=== PATIENT | female | born 1950 | race Caucasian/White ===

== ENCOUNTER 2017-01-26 13:00 | Inpatient (IN) | payer OTHER ==
[~2017-01-26] VITALS: Ht 160 cm; Wt 75.7 kg
[~2017-01-26 13:00] MED LIST: [UNRECOGNIZED DRUG - REMARK]
[2017-01-26 13:07] VITALS: BP 133/73
[2017-01-26 13:38] LABS: BASOPHILS # (AUTO) 0.2 K/uL (0.00-0.22); BASOPHILS % (AUTO) 2.1 % (0.0-2.0); EOSINOPHILS # (AUTO) 0.5 K/uL (0-0.4); EOSINOPHILS % (AUTO) 5.6 % (0.0-4.0); HEMOGLOBIN 14.2 g/dL (12.0-16.0); LYMPHOCYTES # (AUTO) 1.4 K/uL (2.5-16.5); LYMPHOCYTES % (AUTO) 14.1 % (20.5-51.1); MEAN CORPUSCULAR HEMOGLOBIN 30 pg (27-31); MEAN CORPUSCULAR HGB CONC 32 g/dL (33-37); MEAN CORPUSCULAR VOLUME 94 fL (80-94); MONOCYTES # (AUTO) 0.8 K/uL (0.8-1.0); MONOCYTES % (AUTO) 8.7 % (1.7-9.3); NEUTROPHILS # (AUTO) 6.9 K/uL (1.8-7.7); NEUTROPHILS % (AUTO) 69.5 % (42.2-75.2); PLATELET COUNT (AUTO) 234 K/uL (140-450); RED CELL DISTRIBUTION WIDTH 14.6 % (11.6-13.7); WHITE BLOOD COUNT (AUTO) 9.8 K/uL (4.8-10.8)
--- NOTE | 2017-01-26 13:50 | NUR ---
Patient BIBA to bed 6 at this time
[2017-01-26 13:56] LABS: ANION GAP 15.2 (8-16); CARBON DIOXIDE 27.7 mmol/L (21-32); CREATININE 1.4 mg/dL (0.6-1.3); POTASSIUM 3.9 mmol/L (3.5-5.1)
--- NOTE | 2017-01-26 14:00 | NUR ---
66F BIBA FROM CLINIC IN [place] C/O MID-ABDOMINAL PAIN, SHARP, NON-RADIATING, 10/10 X 5 DAYS; PT C/O NAUSEA, BUT STATES NO VOMTIING/DIARRHEA AT THIS TIME; ABDOMEN SOFT, NON-TENDER, ACTIVE BOWEL SOUNDS X 4 QUADRANTS; PT NOTED WITH PORT-O-CATH TO LEFT UPPER CHEST; HEALED SCAR NOTED TO RT ABDOMEN FROM GALLBLADDER REMOVAL AND HEALED SCAR NOTED TO RT BREAST FROM MASTECTOMY/RT BREAST CANCER; PT AA&OX4, PERRLA, BL LUNG SOUNDS CLEAR, RR EVEN/UNLABORED, SKIN IS WARM/DRY/INTACT; PT PLACED ON MONITOR, RESTING IN BED W/ HOB ELEVATED AND IN LOWEST POSITION; POSITIONED FOR COMFORT; ER MD MADE AWARE OF STATUS. WILL CONTINUE TO MONITOR.
[2017-01-26 14:03] LABS: ALBUMIN 2.8 g/dL (3.4-5.0); TOTAL BILIRUBIN 3.3 mg/dL (0.0-1.0)
[2017-01-26] MEDS ORDERED: MORPHINE SULFATE 4 MG/ML SYR IVP ONE ×2 (14:20→16:05)
--- NOTE | 2017-01-26 14:45 | NUR ---
IV 20G TO LEFT HAND ESTABLISHED INI FIELD removed IV NOT FLUSHABLE, catheter intact and site benign. Applied folded 4x4 gauze and tape to stop bleeding. PT TOLERATED PROCEDURE WELL; PT STATES NO PAIN TO SITE.
[2017-01-26] MEDS ORDERED: ONDANSETRON 4 MG/2 ML VIAL IVP ONE (14:55)
--- NOTE | 2017-01-26 15:45 | NUR ---
PT RETURNED FROM CT VIA [facility]NEY ACCOMPANIED BY [employer]
--- NOTE | 2017-01-26 16:03 | NUR ---
ER MD DR. GEE EVALUATING PT AT BEDSIDE.
--- NOTE | 2017-01-26 16:30 | NUR ---
PT APPEARS TO BE RESTING COMFORTABLY IN BED; VSS; RR EVEN/UNLABORED; WILL CONTINUE TO MONITOR.
[2017-01-26] MEDS ORDERED: LEVOFLOXACIN 500 MG/D5W PREMIX 100 ML IV ONE (16:35)
[2017-01-26] MEDS ORDERED: NACL 0.9% 1,000 ML IV ONE (16:35)
[2017-01-26] MEDS: NACL 0.9% 1,000 ML IV SCH (16:52)
[2017-01-26] MEDS ORDERED: LORazepam 2 MG/ML VIAL IVP PRN (16:55)
[2017-01-26] MEDS ORDERED: ALBUTEROL 0.083% 2.5 MG/3 ML NEBU IH PRN (16:55)
[2017-01-26] MEDS ORDERED: LEVOFLOXACIN 500 MG/D5W PREMIX 100 ML IV SCH (16:55)
--- NOTE | 2017-01-26 17:07 | NUR ---
CALLED TO GIVE REPORT TO MST; MST TO CALL BACK WHEN RN ASSIGNED TO PT VERIFIED.
--- NOTE | 2017-01-26 17:41 | NUR ---
REPORT GIVEN TO HARLEY ANDERSEN.
[2017-01-26 17:49] LABS: AMPHETAMINE, URINE NEG. ng/ml (NEG <=1000); BARBITURATE, URINE NEG. ng/ml (NEG <=200); BENZODIAZEPINE, URINE NEG. ng/mL (NEG <=200); CANNABINOID, URINE NEG. ng/mL (NEG <=50); COCAINE, URINE NEG. ng/mL (NEG <=300); OPIATE, URINE NEG. ng/mL (NEG <=2000); PHENCYCLIDINE SCREEN,URINE NEG. ng/mL (NEG <=25)
--- NOTE | 2017-01-26 18:04 | NUR ---
Patient will be admitted to care of DR. SORIANO. Admited to MED-SURG. Will go to room 122B. Belongings list completed. Report to HARLEY ANDERSEN.
--- NOTE | 2017-01-26 18:05 | NUR ---
RECEIVED PATIENT FROM ER NURSE. PATIENT IS AAOX4 AND SHOWS NO S/S OF DISTRESS ON ROOM AIR. IV NOTED ON THE LEFT HAND WITH IVF'S INFUSING WELL. PATIENT STATES SHE IS IN PAIN FROM THE MOVEMENT OF BEING TRANSPORTED TO THE UNIT. VITAL SIGNS 92/59, HR 101, RESPIRATIONS 17, O2 SAT 96%, TEMPERATURE 98.2 F. PATIENT SKIN IS INTACT. ON MED SURG. PATIENT WAS EDUCATED ON THE POC FOR TODAY. THE BED IS LOWERED WITH CALL LIGHT WITHIN REACH.
--- NOTE | 2017-01-26 19:20 | NUR ---
RECEIVED REPORT FROM HARLEY ANDERSEN AT BEDSIDE. INITIAL ASSESSMENT COMPLETED. PT AAOX4. PT AMBULATORY. PT HAS IV ON LEFT HAND 24G INFUSING FLUIDS WELL. PT HAS A MAGNOLIA CATH. PT HAD RIGHT SIDED MASTECTOMY. ORIENTED PT TO ROOM AND SURROUNDINGS AND USE OF CALL LIGHT. EXPLAINED PLAN OF CARE TO PT AND DAUGHTER AND THEY VERBALIZE UNDERSTANDING. WILL CONTINUE TO MONITOR PT. CALL LIGHT WITHIN REACH.
--- NOTE | 2017-01-26 19:27 | NUR ---
PT REPORT WAS GIVEN AT BEDSIDE TO NIGHT NURSE. PATIENT ENDORSED IN STABLE CONDITION.
--- NOTE | 2017-01-26 20:20 | NUR ---
I PROVIDED PT WITH SCDS AND EXPLAINED THE BENEFITS OF IT. PT WEARING SCDS.
--- NOTE | 2017-01-26 21:27 | NUR ---
PT COMPLAINING OF ABDOMINAL PAIN 01/24. VS STABLE, WILL MEDICATE ORDERED.
[2017-01-26] MEDS: MORPHINE SULFATE 2 MG/ML SYR IVP PRN (21:29)
[2017-01-26] MEDS: ONDANSETRON 4 MG/2 ML VIAL IVP PRN (21:29)
--- NOTE | 2017-01-26 23:59 | NUR ---
PT STABLE, NO SIGNS OF DISTRESS OR DISCOMFORT NOTED. CALL LIGHT WITHIN REACH.
[2017-01-27] VITALS: BP 117/65
--- NOTE | 2017-01-27 00:50 | NUR ---
PT VOIDED USING A BEDPAN. PT STABLE AT THIS TIME. CALL LIGHT WITHIN REACH.
--- NOTE | 2017-01-27 02:20 | NUR ---
PT AWAKE, PT STATED THAT SHE SLEPT WELL BUT SHE IS STILL TIRED. WILL CONTINUE TO MONITOR PT.
[2017-01-27] MEDS: NACL 0.9% 1,000 ML IV SCH (03:47)
--- NOTE | 2017-01-27 04:46 | NUR ---
PT SLEEPING NO SIGNS OF DISTRESS OR DISCOMFORT NOTED. WILL CONTINUE TO MONITOR PT.
--- NOTE | 2017-01-27 06:25 | NUR ---
PT USING BEDPAN. PT TOLERATING IT WELL. WILL CONTINUE TO MONITOR PT.
[2017-01-27 07:10] LABS: BASOPHILS # (AUTO) 0.1 K/uL (0.00-0.22); EOSINOPHILS # (AUTO) 0.6 K/uL (0-0.4); EOSINOPHILS % (AUTO) 7.1 % (0.0-4.0); HEMATOCRIT 35.9 % (36-48); HEMOGLOBIN 12.1 g/dL (12.0-16.0); LYMPHOCYTES # (AUTO) 1.6 K/uL (2.5-16.5); LYMPHOCYTES % (AUTO) 19.8 % (20.5-51.1); MEAN CORPUSCULAR HEMOGLOBIN 31 pg (27-31); MEAN CORPUSCULAR HGB CONC 34 g/dL (33-37); MEAN CORPUSCULAR VOLUME 93 fL (80-94); MONOCYTES # (AUTO) 0.7 K/uL (0.8-1.0); MONOCYTES % (AUTO) 9.2 % (1.7-9.3); NEUTROPHILS # (AUTO) 4.8 K/uL (1.8-7.7); NEUTROPHILS % (AUTO) 62.9 % (42.2-75.2); PLATELET COUNT (AUTO) 194 K/uL (140-450); RED BLOOD CELL COUNT(AUTO) 3.86 MIL/uL (4.20-5.40); RED CELL DISTRIBUTION WIDTH 14.9 % (11.6-13.7); WHITE BLOOD COUNT (AUTO) 7.8 K/uL (4.8-10.8)
--- NOTE | 2017-01-27 07:30 | NUR ---
RECEIVED PATIENT REPORT AT BEDSIDE. PATIENT AWAKE AND ALERT. PATIENT C/O 9/10 ABD PAIN AND NAUSEA. WILL MEDICATE. PATIENT BREATHING ON ROOM AIR. NO SOB NOTED. BED LOWERED WITH CALL LIGHT WITHIN REACH. WILL CONTINUE TO MONITOR
--- NOTE | 2017-01-27 07:38 | NUR ---
ENDORSED PLAN OF CARE TO DAY SHIFT NURSE. PT IN STABLE CONDITION.
[2017-01-27] MEDS: MORPHINE SULFATE 2 MG/ML SYR IVP PRN ×2 (07:50→14:17)
[2017-01-27] MEDS: ONDANSETRON 4 MG/2 ML VIAL IVP PRN ×2 (07:54→15:07)
[2017-01-27 08:00] VITALS: BP 106/59
[2017-01-27 08:05] LABS: ANION GAP 14.6 (8-16); CALCIUM 8.3 mg/dL (8.5-10.1); CARBON DIOXIDE 25.5 mmol/L (21-32); CREATININE 1.3 mg/dL (0.6-1.3); POTASSIUM 4.1 mmol/L (3.5-5.1)
[2017-01-27 08:12] LABS: ALBUMIN 2.3 g/dL (3.4-5.0); TOTAL BILIRUBIN 2.5 mg/dL (0.0-1.0); TOTAL PROTEIN, SERUM 6.6 g/dL (6.4-8.2)
[2017-01-27] MEDS ORDERED: ENOXAPARIN 30 MG/0.3 ML SYR SUBQ SCH (09:00)
--- NOTE | 2017-01-27 09:05 | NUR ---
PATIENT HAS BEEN SCREENED AND CATEGORIZED HIGH NUTRITION RISK. PATIENT WILL BE SEEN WITHIN 1-2 DAYS OF ADMISSION. 01/27/17-01/28/[address]
--- NOTE | 2017-01-27 09:20 | NUR ---
PATIENT SEEN BY DR SORIANO
--- NOTE | 2017-01-27 09:46 | NUR ---
BLOOD SUGAR 44. DR SORIANO NOTIFIED. ORDERS TO GIVE D50 IVP
--- NOTE | 2017-01-27 09:50 | NUR ---
D50 ADMINISTERED IVP. WILL REASSESS
[2017-01-27] MEDS ORDERED: DEXTROSE 50% 50 ML SYR IVP ONE (09:51)
--- NOTE | 2017-01-27 10:31 | NUR ---
BLOOD SUGAR CHECKED 188
--- NOTE | 2017-01-27 10:32 | NUR ---
CM NOTE PER FIRST OFFICER AND FLIGHT INSTRUCTOR PORTILLO, REVIEWS SHOULD ONLY BE SENT TO [facility]. FAXED INITIAL REVIEW TO [facility] [phone]
[2017-01-27] MEDS: DEXT 5% /NACL 0.9% 1,000 ML IV SCH (10:45)
[2017-01-27] MEDS ORDERED: DEXTROSE 50% 50 ML SYR IVP PRN (11:00)
[2017-01-27] MEDS ORDERED: MAGNESIUM HYDROXIDE 2400 MG/30 ML UDC PO PRN (11:10)
[2017-01-27] MEDS ORDERED: BISACODYL 10 MG SUPP RC PRN (11:10)
[2017-01-27] MEDS: BLOOD GLUCOSE MONITORING 1 DEV DEV FS SCH ×3 (11:50→20:30)
--- NOTE | 2017-01-27 12:30 | NUR ---
ASSISTED PATIENT TO THE BEDSIDE COMMODE. PATIENT HAD A BM. STOOL FORMED, BLACK IN COLOR, MODERATED IN AMOUNT. PATIENT GIVEN PERINEAL CARE.
--- NOTE | 2017-01-27 12:39 | NUR ---
01/27/17 RD INITIAL ASSESSMENT COMPLETED PLEASE REFER TO NUTRITION ASSESSMENT UNDER CARE ACTIVITY FOR ESTIMATED NUTRITIONAL NEEDS. 1. WHEN MEDICALLY FEASIBLE, INITIATE PO DIET, TO START ON CLEAR LIQUID DIET AND ADVANCE TOLERATED TO REGULAR, MECHANICAL SOFT DIET. 2. RD TO FOLLOW-UP 2-3 DAYS; HIGH RISK TASHA NELSON RD
--- NOTE | 2017-01-27 14:10 | NUR ---
PATIENT SEEN BY DR MCFARLAND
[2017-01-27 16:00] VITALS: BP 112/57
[2017-01-27] MEDS ORDERED: LEVOFLOXACIN 250 MG/D5 PREMIX 50 ML IV SCH (16:00)
[2017-01-27] MEDS ORDERED: MAGNESIUM CITRATE 300 ML BTL PO SCH (17:00)
[2017-01-27] MEDS: METOCLOPRAMIDE 10 MG/2 ML INJ VIAL IVP SCH ×2 (17:42→23:24)
[2017-01-27] MEDS: ALUMINUM HYD/MAG/SIMETHICONE 30 ML UDC PO SCH ×2 (17:42→20:24)
[2017-01-27] MEDS: LACTULOSE 20 GM/30 ML UDC PO SCH ×2 (17:43→20:24)
[2017-01-27] MEDS: SENNA 8.6 MG TAB PO SCH (17:43)
--- NOTE | 2017-01-27 18:40 | NUR ---
PATIENT CALMLY ASLEEP IN BED. NO S/S OF DISTRESS NOTED. DAUGHTER PRESENT AT BEDSIDE
--- NOTE | 2017-01-27 19:22 | NUR ---
PATIENT REPORT GIVEN AT BEDSIDE. PATIENT ENDORSED IN STABLE CONDITION
--- NOTE | 2017-01-27 19:35 | NUR ---
RECEIVED REPORT FROM HARLEY SOLANO AT BEDSIDE. INITIAL ASSESSMENT COMPLETED. PT AAOX4. PT AMBULATES WITH ASSIST. PT HAS IV ON LEFT AC 22 G INFUSING FLUIDS WELL. PT HAS A MAGNOLIA CATH. PT HAD RIGHT SIDED MASTECTOMY. ORIENTED PT TO ROOM AND SURROUNDINGS AND USE OF CALL LIGHT. EXPLAINED PLAN OF CARE TO PT AND DAUGHTER AND THEY VERBALIZE UNDERSTANDING. WILL CONTINUE TO MONITOR PT. CALL LIGHT WITHIN REACH.
[2017-01-27] MEDS: PANTOPRAZOLE 40 MG INJ VIAL IVP SCH (20:24)
--- NOTE | 2017-01-27 20:30 | NUR ---
PT TOLERATED 2100 MEDS WELL. DAUGHTER AT BEDSIDE. WILL CONTINUE TO MONITOR PT.
--- NOTE | 2017-01-27 22:20 | NUR ---
PT REMINDED THAT SHE WILL BE NPO AFTER MIDNIGHT. PT VERBALIZES UNDERSTANDING.
--- NOTE | 2017-01-27 23:50 | NUR ---
0000 MED GIVEN. WILL CONTINUE TO MONITOR PT.
[2017-01-28] MEDS: DEXT 5% /NACL 0.9% 1,000 ML IV SCH (00:46)
--- NOTE | 2017-01-28 01:13 | NUR ---
PT HAD A LARGE BROWN BOWEL MOVEMENT. PT CLEANED, GOWN AND LINEN CHANGED. PT RESTING NOW. WILL CONTINUE TO MONITOR PT.
--- NOTE | 2017-01-28 01:45 | NUR ---
PT SCHEDULE FOR COLONOSCOPY AT 1220; PT HAS NO CHEST X RAY DONE. WILL PUT IN ORDERS. ASH PIT WORKER AWARE.
--- NOTE | 2017-01-28 03:50 | NUR ---
PT HAD A LARGE FORMED BOWEL MOVEMENT. PT CLEANED LINEN CHANGED. WILL CONTINUE TO MONITOR PT.
[2017-01-28] MEDS ORDERED: BOWEL EVACUANT DRINK 4,000 ML PDS PO SCH (05:00)
[2017-01-28] MEDS: METOCLOPRAMIDE 10 MG/2 ML INJ VIAL IVP SCH ×2 (05:50→12:00)
[2017-01-28 05:53] LABS: BASOPHILS # (AUTO) 0.2 K/uL (0.00-0.22); BASOPHILS % (AUTO) 1.7 % (0.0-2.0); EOSINOPHILS # (AUTO) 0.4 K/uL (0-0.4); EOSINOPHILS % (AUTO) 4.5 % (0.0-4.0); HEMATOCRIT 35.5 % (36-48); HEMOGLOBIN 11.8 g/dL (12.0-16.0); LYMPHOCYTES % (AUTO) 20.6 % (20.5-51.1); MEAN CORPUSCULAR HEMOGLOBIN 31 pg (27-31); MEAN CORPUSCULAR HGB CONC 33 g/dL (33-37); MEAN CORPUSCULAR VOLUME 94 fL (80-94); MONOCYTES # (AUTO) 0.9 K/uL (0.8-1.0); MONOCYTES % (AUTO) 9.1 % (1.7-9.3); NEUTROPHILS # (AUTO) 6.3 K/uL (1.8-7.7); NEUTROPHILS % (AUTO) 64.1 % (42.2-75.2); PLATELET COUNT (AUTO) 210 K/uL (140-450); RED BLOOD CELL COUNT(AUTO) 3.78 MIL/uL (4.20-5.40); RED CELL DISTRIBUTION WIDTH 14.9 % (11.6-13.7); WHITE BLOOD COUNT (AUTO) 9.8 K/uL (4.8-10.8)
--- NOTE | 2017-01-28 05:53 | NUR ---
PT TOLERATED MORNING MED WELL. PT HAS GOLYTELY AT BEDSIDE.
[2017-01-28 06:04] LABS: ANION GAP 13.3 (8-16); CARBON DIOXIDE 24.1 mmol/L (21-32); CREATININE 1.2 mg/dL (0.6-1.3); POTASSIUM 3.4 mmol/L (3.5-5.1)
--- NOTE | 2017-01-28 06:30 | NUR ---
PT DRINKING GOLYTELY. WILL CONTINUE TO MONITOR PT.
--- NOTE | 2017-01-28 07:30 | NUR ---
REPORT RECEIVED FROM AUTO ELECTRICAL TECHNICIAN, PT AOX4, RESP EVEN UNLABORED ON ROOM AIR, SKIN WARM DRY COLOR WNL, PLAN OF CARE REVIEWED, EGD/COLONOSCOPY TODAY, BOWEL PREP WITH GOLYTELY ONGOING, PT TOLERATING WELL, ALL QUESTION ASKED AND ANSWERED, CALL DOMINGUEZ WITHIN REACH, SIDE RAILS UP, WILL CONTINUE TO MONITOR.
[2017-01-28 08:00] VITALS: BP 118/56
[2017-01-28] MEDS: BLOOD GLUCOSE MONITORING 1 DEV DEV FS SCH ×3 (08:00→16:30)
--- NOTE | 2017-01-28 08:05 | NUR ---
ENDORSED PLAN OF CARE TO RAMAN; PT IN STABLE CONDITION.
[2017-01-28] MEDS: SENNA 8.6 MG TAB PO SCH ×2 (09:00→13:00)
[2017-01-28] MEDS: ALUMINUM HYD/MAG/SIMETHICONE 30 ML UDC PO SCH ×2 (09:00→13:00)
[2017-01-28] MEDS: LACTULOSE 20 GM/30 ML UDC PO SCH ×2 (09:00→13:00)
[2017-01-28] MEDS ORDERED: DEXTROSE 5% 1,000 ML IV SCH (09:15)
[2017-01-28] MEDS: PANTOPRAZOLE 40 MG INJ VIAL IVP SCH (09:37)
--- NOTE | 2017-01-28 10:38 | NUR ---
FAXED CONCURRENT REVIEW TO [facility] [phone] PHONE [phone]
--- NOTE | 2017-01-28 10:44 | NUR ---
PT CONTINUES TO HAVE LIQ BM, NOW YELLOW CLEAR LIQ, GOLYTELY ALMOST FINISHED, ONLY 1 CUP LEFT. PT DENIES NEED FOR PAIN MEDS, IVF INFUSIBarak MORA, SITE CLEAR, WILL CONTINUE TO MONITOR.
--- NOTE | 2017-01-28 12:11 | NUR ---
PT TO OR FOR EGD/COLONOSCOPY
[2017-01-28 12:38] LABS: AFP (TUMOR MARKER) 3.3 ng/mL (0.0-8.3)
[2017-01-28] MEDS ORDERED: fentaNYL 0.05 MG/ML VIAL ONE (12:51)
[2017-01-28] MEDS ORDERED: MIDAZOLAM 2 MG/2 ML VIAL ONE (12:51)
--- NOTE | 2017-01-28 13:16 | NUR ---
Social Service Note: I met with patient's daughter Jolie Gudino, verified with her information provided to me by patient.
[2017-01-28 13:45] VITALS: BP 108/58
--- NOTE | 2017-01-28 13:45 | NUR ---
PT BACK FROM OR, PT ASLEEP, AROUSES EASILY BY VOICE, VSS, WILL CONTINUE TO MONITOR.
[2017-01-28] MEDS ORDERED: fentaNYL 0.05 MG/ML VIAL IVP ONE (14:00)
[2017-01-28] MEDS ORDERED: MIDAZOLAM 2 MG/2 ML VIAL IVP ONE (14:00)
--- NOTE | 2017-01-28 14:20 | NUR ---
DR SORIANO CALLED AND NOTIFIED OF EGD/COLONOSCOPY RESULT.
[2017-01-28] MEDS ORDERED: LACT10SO1 PO (16:15)
[2017-01-28] MEDS ORDERED: PANT40EC PO (16:17)
--- NOTE | 2017-01-28 16:20 | NUR ---
PT RESTING QUIETLY IN NAD, RESP EVEN UNLABORED, BUBBA PO CLEARS WELL,
--- NOTE | 2017-01-28 18:50 | NUR ---
PT BUBBA PO SOFT DIET WELL WITHOUT VOMITING, DENIES NAUSEA, DENIES PAIN, DC INSTRUCTION AND RX GIVEN AND EXPLAINED TO PT AND SON, PT AND SON VERBALIZED FULL UNDERSTANDING,IV DC'D CATH TIP INTACT, BLEEDING CONTROLLED, PT UP OUT OF BED WITH ASSIST, TRANSFERED TO WHEEL CHAIR WITH ASSIT, DC HOME NOW WITH FAMILY
[2017-01-29] MEDS ORDERED: LACTULOSE 20 GM/30 ML UDC PO SCH (09:00)
== END 2017-01-28 18:50 | disposition home or self-care (01) | DRG 391 ==
LOC: MED 13:00 → MTU 16:48
PROVIDERS: ADMIT Hospitalist; ATTEND Hospitalist
PROC: 0DB68ZX Excision of Stomach, Via Natural or Artificial Opening Endoscopic, Diagnostic (ICD-10-PCS; principal; 2017-01-28 12:20)
PROC: 0DJD8ZZ Inspection of Lower Intestinal Tract, Via Natural or Artificial Opening Endoscopic (ICD-10-PCS; 2017-01-28 12:20)
DX: K59.00 Constipation, unspecified (principal); K85.90 Acute pancreatitis without necrosis or infection, unspecified; N39.0 Urinary tract infection, site not specified; E44.1 Mild protein-calorie malnutrition; F10.10 Alcohol abuse, uncomplicated; E16.2 Hypoglycemia, unspecified; K29.70 Gastritis, unspecified, without bleeding; K57.30 Diverticulosis of large intestine without perforation or abscess without bleeding; I10 Essential (primary) hypertension; K64.1 Second degree hemorrhoids; Z85.3 Personal history of malignant neoplasm of breast; Z88.6 Allergy status to analgesic agent; Z88.0 Allergy status to penicillin; Z88.8 Allergy status to other drugs, medicaments and biological substances; Z91.041 Radiographic dye allergy status; Z85.830 Personal history of malignant neoplasm of bone; Z90.49 Acquired absence of other specified parts of digestive tract
CPT/HCPCS: 36415; 71010; 80048; 80053; 80305; 82105; 82140; 82378; 82948; 83690; 85025; 86301; 86304; 86677; 87040; 87081; 93005; 96365; 96375; 96376; 99285; C9113; J1650; J1956; J2250; J2270; J2405; J2765; J3010; J7030; J7042; J7060; Q0092